=== PATIENT | female | born 1955 | race Caucasian/White ===

== ENCOUNTER 2025-01-25 06:07 | Observation (INO) ==
--- NOTE | 2025-01-22 11:29 | Anesthesiology Consultation ---
Date of Service January 22, 2025 Assessment & Plan (1) Encounter for pre-operative examination: Plan - awaiting surgeon ordered UA and will request 01/09 Dr. Villeda cardiology office note. - check BSG am DOS. - medical clearance 01/09/25: "...low risk..." - tirzepatide instructions: Patient informed at PAT visit to stop 7 days prior to surgery. - Per supervisor dials on 01/22: No known infectious disease contacts, current infectious disease symptoms in past 10 days or COVID positive test result in the past 30 days. Chart Review Chart Review: Patient NOT seen in Pre Admission Testing History Surgery Operation Date: 01/25/25 09:05 Proposed Procedures p C-5 to C-6 Anterior Cervical Discectomy and Fusion, with Spinal Cord Monitoring - Rolando Stinson DO Height/Weight Height: 5 ft 7 in Weight: 69.4 kg Allergies Allergy/AdvReac Type Severity Reaction Status Date / Time clindamycin Allergy Severe Hives Verified 01/22/25 10:47 codeine Allergy Severe Hives Verified 01/22/25 10:47 morphine Allergy Severe Hives Verified 01/22/25 10:47 penicillin V Allergy Severe Hives Verified 01/22/25 10:47 sertraline [From Zoloft] Allergy Severe Hives Verified 01/22/25 10:47 Sulfa (Sulfonamide Allergy Severe Hives Verified 01/22/25 10:47 Antibiotics) tetracycline Allergy Severe Hives Verified 01/22/25 10:47 tramadol Allergy Severe Hives Verified 01/22/25 10:47 vancomycin Allergy Severe Hives Verified 01/22/25 10:47 adhesive tape Allergy Mild Rash Verified 01/22/25 10:47 clarithromycin Allergy Mild Rash Verified 01/22/25 10:47 latex Allergy Mild Rash Verified 01/22/25 10:47 levofloxacin [From Levaquin] Allergy Mild hypoglycemi Verified 01/22/25 10:47 a sulfamethoxazole Allergy Mild hypoglycemi Verified 01/22/25 10:47 [From Septra] a trazodone Allergy Mild Itching Verified 01/22/25 10:47 trimethoprim Allergy Unknown Unknown Verified 01/22/25 10:47 metformin AdvReac Mild Diarrhea Verified 01/22/25 10:48 Medications Home Medications Medication Instructions Recorded Confirmed Last Taken buprenorphine HCl 150 mcg buccal 150 mcg buccal Q12H PRN Pain 01/22/25 01/22/25 Unknown film (Belbuca) cholecalciferol (vitamin D3) 125 50,000 unit PO WK 01/22/25 01/22/25 Unknown mcg (5,000 unit) tablet (Vitamin D3) citalopram 40 mg tablet (Celexa) 40 mg PO HS 01/22/25 01/22/25 Unknown hydrocodone 5 mg-acetaminophen 325 1 tab PO TID PRN Pain 01/22/25 01/22/25 Unknown mg tablet insulin glargine U-300 conc 300 22 unit subcut HS 01/22/25 01/22/25 Unknown unit/mL (1.5 mL) subcutaneous pen (Toujeo SoloStar U-300 Insulin) insulin lispro 100 unit/mL 2 unit subcut AC 01/22/25 01/22/25 Unknown subcutaneous solution (Humalog U-100 Insulin) metoprolol succinate 25 mg 25 mg PO HS 01/22/25 01/22/25 Unknown tablet,extended release 24 hr (Toprol XL) rosuvastatin 40 mg tablet (Crestor) 40 mg PO HS 01/22/25 01/22/25 Unknown tirzepatide 10 mg/0.5 mL 10 mg subcut WK 01/22/25 01/22/25 Unknown subcutaneous pen injector (Mounjaro) Past Medical History Medical History Arthritis BPPV (benign paroxysmal positional vertigo) Cervical disc disease poor rom Depression with anxiety Diabetes mellitus Fibromyalgia History of anesthesia reaction aspiration while under anesthesia- unable to recall which surgery it was - approx. 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 3 x per month Orthostatic hypotension Seasonal asthma no inhaler, no cereal popper Tachycardia follows with cardio kalluri at [facility], [place] (01/09/25) Past Surgical History Surgical History History of colon resection (2021) due to diverticulitis History of open reduction and internal fixation (ORIF) procedure (1995) left leg- had surgery twice within 6 days Hx of bilateral mastectomy (2005) Hx of bilateral oophorectomy (2009) Hx of breast reconstruction (2007) x 2- 2007 and 2008 Hx of breast surgery (2015) scar tissue removed x 4: [id number] Hx of cervical spine surgery (2022) C5-C6- unsure what type of surgery, had in [place] poor ROM Hx of section (1979) 1969, 1979 Hx of cholecystectomy (1990) Hx of colonoscopy (2024) told it was all normal Hx of endoscopic sinus surgery (1999) also had mastoid surgery and tubes placed in ears at the same time Hx of esophagogastroduodenoscopy (1998) Hx of hernia repair (2015) 1964- b/l inguinal 2006- incisional hernia 2015- incisional hernia Hx of hysterectomy (2001) Hx of lithotripsy Hx of parathyroidectomy (2014) had done to help with kid stones Hx of tonsillectomy (1962) S/P cystoscopy with ureteral stent placement (05/2024) x 3 all in May 2024- [facility] in [place] Social History Smoking Status: Never smoker Do You Dip or Chew Tobacco: No Hx Alcohol Use: No Hx Substance Use: No substance use type: does not use Lab Results Anesthesia Preop Results Results Anesthesia Widget: WBC 5.39 K/ul (4.8-10.8) 01/03/25 Hgb 12.0 g/dl (12.0-16.0) 01/03/25 Hct 34.0 % (37.0-47.0) L 01/03/25 Plt 183 K/uL (130-400) 01/03/25 Na 140 mmol/L (136-145) 01/03/25 K 3.6 mmol/L (3.5-5.1) 01/03/25 Cl 103 mmol/L (98-107) 01/03/25 CO2 30 mmol/L (21-32) 01/03/25 BUN 13 mg/dl (6-23) 01/03/25 Creat 0.75 mg/dl (0.6-1.2) 01/03/25 Glucose Level 171 mg/dl (70-99(Fasting)) H 01/03/25 PT 10.3 Seconds (9.0-12.0) 01/03/25 PTT 24 Seconds (21-31) 01/03/25 INR 1.0 (0.9-1.1) 01/03/25 Blood Type A Positive 01/03/25 Antibody Screen NEGATIVE 01/03/25 Testing Electrocardiogram Date: 01/03/25 Sinus rhythm with 1st degree AV block, rate 64 bpm Chest X-Ray Date: 01/03/25 No acute findings.
[2025-01-25 06:42] LABS: Appearance Urine Clear (Clear); Bacteria Urine Automated None Seen (None Seen); Glucose Urine UA Negative (Negative); RBC Urine Automated 0-2 /hpf (0-2)
[2025-01-25] MEDS: LR 60ML/HR IV SCH (06:48)
[2025-01-25] MEDS: CeleBREX 200 MG CAP PO SCH (06:49)
[2025-01-25] MEDS: GABAPENTIN 300 MG CAP PO SCH (06:49)
[2025-01-25] MEDS: ACETAMINOPHEN 500 MG TAB PO SCH (06:49)
[2025-01-25] MEDS: LR 15ML/HR IV SCH (07:00)
[2025-01-25] MEDS ORDERED: LIDOCAINE 2% 2 ML VIAL/AMP(20MG/ML) INFIL ONE ×2 (07:05→07:06)
[2025-01-25] MEDS ORDERED: PROPOFOL IV EMULSION 10 MG/ML 20 ML VIAL IV ONE (07:05)
[2025-01-25] MEDS ORDERED: MIDAZOLAM HCL 1 MG/ML 2ML VIAL ONE (07:05)
[2025-01-25] MEDS ORDERED: DEXAMETHASONE SOD INJ 4 MG/ML VIAL ONE (07:05)
[2025-01-25] MEDS ORDERED: ONDANSETRON INJ 2 MG/ML 2 ML VIAL ONE (07:05)
[2025-01-25] MEDS ORDERED: ROCURONIUM BROMIDE 10 MG/ML 5 ML VIAL IV ONE ×3 (07:06→08:21)
[2025-01-25] MEDS: INSULIN HUMAN REGULAR SC SCH (07:22)
[2025-01-25] MEDS ORDERED: ATROPINE SULFATE 0.1 MG/ML 10ML SYR IV PRN (07:23)
[2025-01-25] MEDS ORDERED: ONDANSETRON INJ 2 MG/ML 2 ML VIAL IV PRN ×2 (07:23→14:20)
[2025-01-25] MEDS: NovoLIN-R INSULIN PER UNIT CHARGE ONE (07:25)
--- NOTE | 2025-01-25 07:51 | History & Physical Bridge Note ---
Date of Service January 25, 2025 History & Physical Bridge Note I have examined the patient, reviewed the History & Physical and in the interval since the performance of the History & Physical I have noted the following changes of clinical significance: no changes noted
--- NOTE | 2025-01-25 07:52 | History & Physical Report ---
Date of Service January 25, 2025 Assessment & Plan (1) Cervical spondylosis with radiculopathy: Plan: Anterior cervical discectomy and fusion C5-C6 History of Present Illness Chief Complaint: Neck and arm pain Primary Care Provider: Mann Barker DO This is a 62-year-old female presents chronic persistent neck and arm pain with failing course of nonoperative care is here for surgical invention. Allergies Allergy/AdvReac Type Severity Reaction Status Date / Time clindamycin Allergy Severe Hives, Verified 01/25/25 06:24 flushed, SOB codeine Allergy Severe Hives Verified 01/25/25 06:24 morphine Allergy Severe Hives Verified 01/25/25 06:24 penicillin V Allergy Severe Hives, SOB Verified 01/25/25 06:24 sertraline [From Zoloft] Allergy Severe Hives Verified 01/25/25 06:24 Sulfa (Sulfonamide Allergy Severe hypoglycemi Verified 01/25/25 06:24 Antibiotics) a tetracycline Allergy Severe itchy Verified 01/25/25 06:24 tramadol Allergy Severe anxious, Verified 01/25/25 06:24 difficulty sleeping vancomycin Allergy Severe Hives, Verified 01/25/25 06:24 SOB, flushing adhesive tape Allergy Mild Rash, Verified 01/25/25 06:24 blisters clarithromycin Allergy Mild Rash Verified 01/25/25 06:24 latex Allergy Mild itchy rash Verified 01/25/25 06:24 levofloxacin [From Levaquin] Allergy Mild Hives Verified 01/25/25 06:24 sulfamethoxazole Allergy Mild hypoglycemi Verified 01/25/25 06:24 [From Septra] a trazodone Allergy Mild Itching Verified 01/25/25 06:24 trimethoprim Allergy Unknown hypoglycemi Verified 01/25/25 06:24 a metformin AdvReac Mild Diarrhea Verified 01/25/25 06:24 Home Medications Medication Instructions Recorded Confirmed Type buprenorphine HCl 150 mcg buccal 150 mcg buccal Q12H PRN Pain 01/22/25 01/25/25 History film (Belbuca) cholecalciferol (vitamin D3) 125 50,000 unit PO WK 01/22/25 01/25/25 History mcg (5,000 unit) tablet (Vitamin D3) citalopram 40 mg tablet (Celexa) 40 mg PO HS 01/22/25 01/25/25 History hydrocodone 5 mg-acetaminophen 325 1 tab PO TID PRN Pain 01/22/25 01/25/25 History mg tablet insulin glargine U-300 conc 300 22 unit subcut HS 01/22/25 01/25/25 History unit/mL (1.5 mL) subcutaneous pen (Toujeo SoloStar U-300 Insulin) insulin lispro 100 unit/mL 2 unit subcut AC 01/22/25 01/25/25 History subcutaneous solution (Humalog U-100 Insulin) metoprolol succinate 25 mg 25 mg PO HS 01/22/25 01/25/25 History tablet,extended release 24 hr (Toprol XL) rosuvastatin 40 mg tablet (Crestor) 40 mg PO HS 01/22/25 01/25/25 History tirzepatide 10 mg/0.5 mL 10 mg subcut WK 01/22/25 01/25/25 History subcutaneous pen injector (Mounjaro) Past Med/Surg History Problem List (Updated 01/25/25 @ 07:52 by Rolando Stinson DO) Cervical spondylosis with radiculopathy Encounter for pre-operative examination Medical History Arthritis BPPV (benign paroxysmal positional vertigo) Cervical disc disease poor rom Depression with anxiety Diabetes mellitus Fibromyalgia History of anesthesia reaction aspiration while under anesthesia- unable to recall which surgery it was - approx. 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 3 x per month Orthostatic hypotension Seasonal asthma no inhaler, no digital performance analyst Tachycardia follows [facility] (01/09/25) Surgical History History of colon resection (2021) due to diverticulitis History of open reduction and internal fixation (ORIF) procedure (1995) left leg- had surgery twice within 6 days Hx of bilateral mastectomy (2005) Hx of bilateral oophorectomy (2009) Hx of breast reconstruction (2007) x 2- 2007 and 2008 Hx of breast surgery (2015) scar tissue removed x 4: [id number] Hx of cervical spine surgery (2022) C5-C6- unsure what type of surgery, [place] in [place] poor ROM Hx of section (1979) 1969, 1979 Hx of cholecystectomy (1990) Hx of colonoscopy (2024) told it was all normal Hx of endoscopic sinus surgery (1999) also had mastoid surgery and tubes placed in ears at the same time Hx of esophagogastroduodenoscopy (1998) Hx of hernia repair (2015) 1964- b/l inguinal 2006- incisional hernia 2015- incisional hernia Hx of hysterectomy (2001) Hx of lithotripsy Hx of parathyroidectomy (2014) had done to help with kid stones Hx of tonsillectomy (1962) S/P cystoscopy with ureteral stent placement (05/2024) x 3 all in May 2024- [facility] in [place] Social History Smoking Status: Never smoker Second Hand Exposure: No; Do You Dip or Chew Tobacco: No; Tobacco Cessation Education Requested by Patient: No Hx Alcohol Use: No Hx Substance Use: No Preferred Language: Persian Communication Ability: Effective Casino Floor Supervisor Required: No Beliefs That Will Affect Care: None Current Living Situation: Spouse Other Information That Helps Us Care for You: No Feels Safe at Home: Yes Safety Concerns: Feels Safe At This Time Assistive Devices: Glasses Physical Exam Physical Exam: Patient is alert and oriented Heart regular rhythm Lungs clear Results & Data Results & Data Vital Signs (Past 12 Hours) Vital Signs Temp Pulse Resp BP Pulse Ox O2 Del Method 01/25/25 06:35 36.7 C 59 L 20 137/65 100 Room Air
[2025-01-25] MEDS ORDERED: PHENYLEPHRINE 100MCG/ML 5ML SYR ONE (08:07)
[2025-01-25] MEDS: FLOSEAL HEMOSTATIC MATRIX 10ML TOP ONE (08:51)
[2025-01-25] MEDS: ceFAZolin 330 MG/ML 1 GM VIAL ONE (08:58)
[2025-01-25] MEDS ORDERED: SUGAMMADEX SODIUM 200 MG/2 ML VIAL IV ONE (08:58)
--- NOTE | 2025-01-25 09:07 | Operative Report ---
Post Operative Report Pre & Post Diagnosis Operation Date: 01/25/25 07:45 Pre-Op Diagnosis: Foraminal Stenosis of Cervical Region, Cervical spondylosis with radiculopathy Post-Op Diagnosis: Foraminal Stenosis of Cervical Region, Cervical spondylosis with radiculopathy I identified the patient and participated in the time-out.: Yes Procedure Operation Date: 01/25/25 07:45 Actual Procedures #1 anterior cervical discectomy with bilateral foraminotomies C5-C6. #2 anterior cervical arthrodesis C5-C6 pain #3 placement of Spira 7 mm cage filled with os design bone graft C5-C6. #4 application of anterior cervical plate and screws C5-C6. Surgeon Rolando Stinson, Pbx Mechanic Eduarda Mitchell Estimated Blood Loss 10 Findings Consistent with Post-Op Diagnosis Specimens None Indications This is a 70-year-old female who presents publish diagnosis of failing course of nonoperative care she is here for surgical invention. Description of Procedure Patient was met with identified and form was then obtained. Patient was then taken to the operative suite underwent a patient placed in spine position ingestible head Carr head ordered. All bony prominences well-padded eyes inspected to ensure no external pressure placed upon them. This point anterior cervical spine was prepped and draped in the normal sterile fashion. With the assistance of fluoroscopy identified the C5-C6 disc base. A transverse incision was placed along the right anterior aspect of the cervical spine overlying this region. Blunt dissection with the assistance of bipolar electrocautery is performed down to and exposing the anterior cervical spine at C5-C6. Self- retaining retractors placed. I then performed a complete discectomy of C5-C6 out to the uncovertebral joints bilaterally. [place] distracting pins utilized to assist in visualization. I removed all posterior annular fibers longitudinal ligament bilateral foraminotomies performed. Endplates burred to subcortical bleeding bone and a 7 mm Spira cage filled with os design bone graft tapped in position. Plate and screws was then applied with the assistance of fluoroscopy. The incision was then copiously irrigated explored to ensure no damage to surrounding structures or remaining bleeding. 10 round JUDY drain inserted. The incision was then closed with 2 Vicryl in the fascia and a 4 Monocryl for final skin closure. Steri-Strips sterile dressing placed. Patient awakened and taken to PACU stable condition. Please note Eduarda Morral was present of the entire procedure and on the patient positioning complex portion of the surgery and final skin closure. I attest to the content of the Intraoperative Record and any orders documented therein. Any exceptions are noted below.
--- NOTE | 2025-01-25 09:16 | Fluoroscopy Report ---
FL cervical 2-3V CLINICAL HISTORY: C5-C6 ACDF COMPARISON STUDY: No previous studies for comparison. FINDINGS: 6 seconds of fluoroscopic time was utilized. 2 intraoperative fluoroscopic spot films are p rovided for interpretation. Images demonstrate postsurgical changes of a anterior cervical discectomy and fusion at the C5-6 leve l with anterior hardware. IMPRESSION: Intraoperative fluoroscopic spot images demonstrating postsurgical changes of anterior c ervical discectomy and fusion at the C5-C6 level. ACT 112: Negative or not required by law. Electronically signed by: Azam Cannon M.D. 01/25/2025 9:14 AM
[2025-01-25] MEDS: HYDROmorphone INJ 2 MG/ML SYR/VIAL IV PRN (09:49)
[2025-01-25] MEDS ORDERED: ONDANSETRON 4 MG OD TAB PO PRN (14:20)
[2025-01-25] MEDS ORDERED: ALUMINUM/MAGNESIUM SUSP 30 ML UDC PO PRN (14:20)
[2025-01-25] MEDS ORDERED: LORazepam Inj 0.5 MG in SYRINGE 0.25 ML IV PRN (14:20)
[2025-01-25] MEDS ORDERED: LORazepam 0.5 MG TAB PO PRN (14:20)
[2025-01-25] MEDS ORDERED: HYDROmorphone INJ 1 MG/ML SYRINGE IV PRN (14:20)
[2025-01-25] MEDS ORDERED: DO NOT ADMINISTER FLU VACCINE PRN (14:20)
[2025-01-25] MEDS ORDERED: dexAMETHasone 8 MG in SYRINGE 0 ML IV PRN (14:20)
[2025-01-25] MEDS ORDERED: HYDROmorphone INJ 0.5 MG/0.5 ML SYR IV PRN (14:20)
[2025-01-25] MEDS ORDERED: FAMOTIDINE 20 MG TAB PO PRN (14:20)
[2025-01-25] MEDS ORDERED: SOD PHOSPHATE/SOD BIPHOSPHATE ENEMA 132 ML BTL PR PRN (14:20)
[2025-01-25] MEDS ORDERED: METOCLOPRAMIDE HCL INJ 5 MG/ML 2 ML VIAL IV PRN (14:20)
[2025-01-25] MEDS ORDERED: PHARMACY GLYCEMIC MGMT CONSULT PRN (14:20)
[2025-01-25] MEDS ORDERED: ACETAMINOPHEN 500 MG TAB PO PRN (14:20)
[2025-01-25] MEDS ORDERED: ACETAMINOPHEN 1,000 MG/100 ML VIAL IV PRN (14:20)
[2025-01-25] MEDS ORDERED: PROMETHAZINE 12.5 MG/50.5 ML BAG IV PRN (14:20)
[2025-01-25] MEDS ORDERED: NALOXONE HCL 0.4 MG/1 ML VIAL/CARP IV PRN (14:20)
[2025-01-25] MEDS ORDERED: MAGNESIUM HYDROXIDE SUSP 30 ML UDC PO PRN (14:20)
[2025-01-25] MEDS ORDERED: diphenhydrAMINE Capsule 25 MG CAP PO PRN (14:20)
[2025-01-25] MEDS ORDERED: DO NOT ADMINISTER PNEUMOCOCCAL VACCINE PRN (14:20)
[2025-01-25] MEDS ORDERED: RACEPINEPHRINE 2.25% NEBU SOLN 0.5 ML VIAL INH PRN (14:20)
[2025-01-25] MEDS ORDERED: GLUCOSE 40% GEL 15 GM TUBE PO PRN (14:45)
[2025-01-25] MEDS ORDERED: CARBOHYDRATES FOR HYPOGLYCEMIA PO PRN (14:45)
[2025-01-25] MEDS ORDERED: GLUCOSE 10 TAB/TUBE PO PRN (14:45)
[2025-01-25] MEDS ORDERED: GLUCAGON FOR INJ 1 MG VIAL SQ PRN (14:45)
[2025-01-25] MEDS ORDERED: LANTUS PER UNIT CHARGE SC ONE (14:45)
[2025-01-25] MEDS: INSULIN HUMAN REGULAR SC STA (14:45)
[2025-01-25] MEDS ORDERED: DEXTROSE 50% 50 ML SYRINGE IV PRN (14:45)
[2025-01-25] MEDS: HYDROCODONE/ACETAMOPHEN 5/325MG TAB PO PRN (15:20)
[2025-01-25] MEDS: SODIUM CHLORIDE 0.9% 1,000 ML IV SCH (15:21)
[2025-01-25] MEDS: INSULIN ASPART PER UNIT CHARGE SC SCH (17:35)
[2025-01-25] MEDS: LANTUS PER UNIT CHARGE SC ONE (17:41)
[2025-01-25] MEDS: CITALOPRAM 40 MG TAB PO SCH (21:23)
[2025-01-25] MEDS: DOCUSATE SODIUM/SENNA 50/8.6MG TAB PO SCH (21:23)
[2025-01-25] MEDS: ROSUVASTATIN CALCIUM 20 MG TAB PO SCH (21:24)
[2025-01-25] MEDS: METOPROLOL SUCC 25MG EXT REL TAB PO SCH (21:25)
[2025-01-26 05:13] VITALS: RESP 16
[2025-01-26] MEDS: POLYETHYLENE (MIRALAX) 17 GM PACK PO SCH (05:14)
[2025-01-26 07:48] LABS: Hematocrit (blood only) 29.6 % (37.0-47.0); Hemoglobin 10.0 g/dl (12.0-16.0); Immature Granulocytes # (auto) 0.03 K/uL (0.01-0.20); Immature Granulocytes % (auto) 0.4 %; Mean Corpuscular Hemoglobin 28.9 pg (25.0-34.0); Mean Corpuscular Volume 85.5 fL (80.0-100.0); Platelet Count 171 K/uL (130-400); RDW Standard Deviation 41.0 fL (36.4-46.3); Red Blood Count 3.46 M/uL (4.20-5.40); White Blood Count 8.39 K/ul (4.8-10.8)
[2025-01-26 08:04] LABS: Anion Gap 7.0 (3-11); Blood Urea Nitrogen 15.0 mg/dl (6-23); Calcium 7.5 mg/dl (8.6-10.3); Carbon Dioxide 28.0 mmol/L (21-32); Chloride 106.0 mmol/L (98-107); Creatinine Clr Calc Pharmacy 85.8 ml/min; Glucose 150.0 mg/dl (70-99(Fasting)); Potassium 3.7 mmol/L (3.5-5.1); Sodium 141.0 mmol/L (136-145)
[2025-01-26] MEDS: dexAMETHasone 6 MG in SYRINGE 0 ML IV SCH (08:33)
--- NOTE | 2025-01-26 08:47 | Pharmacy Report ---
Pharmacy Glycemic Short Note 2 - Date of Service January 26, 2025 - Glycemic Short BSG Results (Last 24 hours): 01/25/25 01/25/25 01/25/25 13:00 16:14 16:16 Glucose POC Glucose 215 H 269 H 262 H 01/25/25 01/26/25 01/26/25 20:49 07:12 07:43 Glucose 150 H POC Glucose 224 H 153 H OUTPATIENT ANTIDIABETIC REGIMEN: * Toujeo 22 units SC HS * Novolog 2 units SC w/ lunch and dinner * Mounjaro 10 mg SC weekly HbA1c: pending 01/26/25 ASSESSMENT: * CO is a 70 year old female POD #1 s/p cervical discectomy/fusion * Received 8 mg IV dexamethasone in OR and now ordered 6 mg IV daily x 3 days * Postoperative hyperglycemia noted yesterday despite aggressive SC basal/bolus regimen PLAN FOR INPATIENT GLYCEMIC CONTROL: * Basal insulin * Lantus 30 units SQ daily w/ IV dexamethasone * Bolus insulin * NovoLog per scale ACHS or Q6hrs while NPO * Goal Range: Low 110 mg/dL - High 140 mg/dL * Correction Factor: 20 mg/dL/unit * Nutritional / Prandial insulin per carb ratio of 1 unit per 6 grams CHO consumed
[2025-01-26] MEDS: LANTUS PER UNIT CHARGE SC SCH (08:48)
--- NOTE | 2025-01-26 09:49 | Discharge Summary ---
Date of Service January 26, 2025 Admission HPI Per Admitting Provider This is a 62-year-old female presents chronic persistent neck and arm pain with failing course of nonoperative care is here for surgical invention. Principal Diagnosis Cervical spondylosis with radiculopathy Discharge Data Allergies Allergy/AdvReac Type Severity Reaction Status Date / Time clindamycin Allergy Severe Hives, Verified 01/25/25 06:24 flushed, SOB codeine Allergy Severe Hives Verified 01/25/25 06:24 morphine Allergy Severe Hives Verified 01/25/25 06:24 penicillin V Allergy Severe Hives, SOB Verified 01/25/25 06:24 sertraline [From Zoloft] Allergy Severe Hives Verified 01/25/25 06:24 Sulfa (Sulfonamide Allergy Severe hypoglycemi Verified 01/25/25 06:24 Antibiotics) a tetracycline Allergy Severe itchy Verified 01/25/25 06:24 tramadol Allergy Severe anxious, Verified 01/25/25 06:24 difficulty sleeping vancomycin Allergy Severe Hives, Verified 01/25/25 06:24 SOB, flushing adhesive tape Allergy Mild Rash, Verified 01/25/25 06:24 blisters clarithromycin Allergy Mild Rash Verified 01/25/25 06:24 latex Allergy Mild itchy rash Verified 01/25/25 06:24 levofloxacin [From Levaquin] Allergy Mild Hives Verified 01/25/25 06:24 sulfamethoxazole Allergy Mild hypoglycemi Verified 01/25/25 06:24 [From Septra] a trazodone Allergy Mild Itching Verified 01/25/25 06:24 trimethoprim Allergy Unknown hypoglycemi Verified 01/25/25 06:24 a metformin AdvReac Mild Diarrhea Verified 01/25/25 06:24 Procedures Performed Operation Date: 01/25/25 07:45 Actual Procedures p C5 to C6 Anterior Cervical Discectomy and Fusion(Not Applicable) - Rolando Stinson DO Ordered Studies 01/25/25 FL cervical 2-3V Routine Hospital Course (1) Cervical spondylosis with radiculopathy: Patient went anterior cervical discectomy fusion trial as well as taken to orthopedic for postoperative. Postoperatively she was noting marked improvement in her arm symptoms. Swallowing well. No hoarseness. Pain well-controlled. Subsidy discharged home. Discharge orders and instructions from the chart for further review. Total Time Total Time Spent Total Time Spent (In Minutes): 20 minutes Discharge Plan Discharge Items Patient Disposition: Home - Self-Care Reason For Visit: POSTOP Discharge Diagnosis: Cervical spondylosis with radiculopathy Activity: As commented below Non-emergency contact: Primary Care Provider Call non-emergency contact if: you have any medication questions Follow-up/Referrals: PCP,NO [Physician] - Diet: Regular Addtl Attending Provider Instructions: ACTIVITY RECOMMENDATIONS: SELF CARE INSTRUCTIONS AFTER CERVICAL FUSIONS 1. No smoking. Smoking drastically decreases the chance of a solid fusion. 2. No bending, lifting more than 5 pounds, or twisting (roll like a log when turning in bed). 3. You may shower 3 days after surgery. Thoroughly dry wound. Do not soak in the tub. 4. Cervical collar: Must be worn at all times including sleeping. You may remove the brace only to bath, eat and if you are sitting in a recliner. 5. Please walk as much as you can for exercise. Gradually increase the distance that you walk as your endurance increases. 6. You may return to previous diet. SPECIAL CARE INSTRUCTIONS: VERY IMPORTANT TO READ AND REVIEW A. Do not take any anti-inflammatory medications (i.e. Indocin, Advil, Aspirin, Naprosyn, Aleve, Motrin, etc.) as these may inhibit the chance of a solid fusion. Tylenol is okay to take. B. Your surgical incision has been closed with a cosmetic suture under the skin that will dissolve in about 6 weeks. In 14 days, you can use a pair of clean scissors and cut the suture that is left outside of the skin at the ends of your incision. C. Complications are uncommon, but please contact us if you have any signs or symptoms of: 1. wound infection (fever higher than 102.5 degrees F, redness, separation of wound, drainage, or increasing pain from the incision) 2. blood clots in legs (pain, swelling, redness and warmth in legs) 3. urinary tract infection (fever higher than 102.5 degrees, burning upon urination or increased frequency of urination) 4. nerve problems (inability to walk on your toes or heels, numbness, loss of bowel or bladder control) 5. any other symptoms that concern you. D. Please call the office at if you have any concerns or questions about your operation or recovery. MANAGING PAIN AFTER SPINAL SURGERY 1. Narcotic medication is intended for short-term use and will be provided for surgical pain. Surgical pain usually lasts for a period of 4-6 weeks. Narcotic medication includes Percocet, Vicodin, Darvocet, Tylenol #3 or Lortab. 2. Longer-term pain is more appropriately treated with non-narcotic medication such as Tylenol ES. 3. Muscle spasm is not appropriately treated with narcotics. Muscle relaxers such as Soma, Flexeril or Skelaxin can be used along with Tylenol ES. 4. Remember that we all live with some "aches and pains". This is not unusual or uncommon after an injury or as we get older. 5. We will provide appropriate medication within the normal guidelines of their prescribed use. We will also be very cautious and aware of potential abuse and extended duration of patients' medication needs. 6. Please allow 2-3 days to process refills. Prescriptions will not be mailed but must be picked up at the office. FOLLOW UP VISIT: Keep your scheduled follow-up appointment. Any questions, please call the office at . Pending Studies at Discharge: No Stand-Alone Forms: My [facility] [email or web address], Smoking Cessation Medications and DC Order Prescriptions: New hydrocodone-acetaminophen 5-325 mg tablet 1 tab PO Q6H PRN (Reason: pain) Qty: 30 0RF hydrocodone-acetaminophen 5-325 mg tablet 1 tab PO Q6H PRN (Reason: pain) Qty: 30 0RF Continued citalopram [Celexa] 40 mg Tablet 40 mg PO HS hydrocodone-acetaminophen 5-325 mg Tablet 1 tab PO TID PRN (Reason: Pain) metoprolol succinate [Toprol XL] 25 mg Tablet Extended Release 24 Hr 25 mg PO HS insulin lispro [Humalog U-100 Insulin] 100 unit/mL Solution 2 unit SUBCUT AC Rx Instructions: only at lunch and supper rosuvastatin [Crestor] 40 mg Tablet 40 mg PO HS cholecalciferol (vitamin D3) [Vitamin D3] 125 mcg (5,000 unit) Tablet 50,000 unit PO WK insulin glargine U-300 conc [Toujeo SoloStar U-300 Insulin] 300 unit/mL (1.5 mL) Insulin Pen 22 unit SUBCUT HS buprenorphine HCl [Belbuca] 150 mcg Film 150 mcg BUCCAL Q12H PRN (Reason: Pain) Mounjaro 10 mg/0.5 mL Pen Injector 10 mg SUBCUT WK Discharge Orders: Discharge Order (Routine); Ordered 01/26/25 Ordered By: Rolando Stinson Admission Data Admit Date/Time: 01/25/25 10:52 Attending Provider: Rolando Stinson Admit Provider: Rolando Stinson Primary Care Provider: Mann Barker Other Providers: [facility]
[2025-01-26 10:33] LABS: Hemoglobin A1C 7.3 % (4.5-5.6)
[2025-01-26 11:51] VITALS: BP 123/64; PULSE 71; TEMP 97.9; O2SAT 94
[2025-01-27] MEDS ORDERED: ERGOCALCIFEROL 1250 MCG (50,000 UNITS) CAP PO SCH (09:00)
== END 2025-01-26 13:07 | disposition home health service (06) | DRG 473 ==
LOC: ASU 06:07 → INTOOBSV 10:52 → PACUINP 10:52 → 3W 14:10